=== PATIENT | female | born 2000 | race Caucasian/White ===

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

== ENCOUNTER → 2020-01-31 | Outpatient (CLI) | payer OTHER | END | disposition home or self-care (01) | LOC: LABWHC1 07:27 | PROVIDERS: ATTEND Family Medicine | DX: U07.1 COVID-19 (principal) ==

== ENCOUNTER → 2020-05-04 | Day surgery (SDC) | payer OTHER ==
[~2020-05-04] MED LIST: GLUCAGON 1 MG/ML VIAL IM STA
[2020-05-04 10:58] VITALS: BP 115/66; PULSE 80; RESP 16; TEMP 98.1
--- NOTE | 2020-05-05 11:32 | MR ---
EXAMINATION TYPE: MR Enterography DATE OF EXAM: 05/04/2020 COMPARISON: None. HISTORY: Unspecified abdominal pain, wt loss CONTRAST: Standard multiplanar, multisequence imaging of the abdomen is performed without and with IV contrast, patient is injected with 4 mL intravenous Gadavist gadolinium contrast. Oral Volumen was given as pe r enterography protocol. FINDINGS: Exam is noted suboptimal as patient unable to tolerate full amount of oral Volumen as per n ormal protocol and additionally patient has virtually no intra-abdominal fat. Bowel: Stomach satisfactorily distended without suspicious eccentric wall thickening or enhancement. Satisfactory fluid-filled distention of majority of duodenal sweep. Adequate distention of the jejuna l loops and fairly adequate distention of ileal loops. No suspicious eccentric wall thickening or mur al enhancement noted in small bowel loops. Cecum is somewhat low-lying in the right pelvis. Terminal ileum is felt within normal limits seen best on coronal images 55 and 56 series 801. There is fairly moderate prominence in the transverse colon. Colonic loop show no suspicious wall thickening or mural enhancement. Other: Lung bases are grossly clear. The liver, spleen, pancreas, and both adrenal glands are normal in size. Gallbladder is noted surgically absent. No concerning renal mass or hydronephrosis seen bila terally. Aorta and branch vessels are unremarkable. Bladder shows mild distention. Heterogeneous ante verted uterus projecting to right of midline is present. There are follicles in the left ovary. There is 1.7 cm thin-walled cyst or dominant follicle in the right ovary. No abdominal ascites. Visualized osseous structures are intact. IMPRESSION: No evidence of acute or chronic bowel inflammation. Terminal ileum felt within normal garcia its. Moderate mid colonic fecal stasis noted otherwise unremarkable study.
== END ==
LOC: RADMRIMAIN 10:09
PROVIDERS: ATTEND Surgery
DX: K59.8 Other specified functional intestinal disorders (principal); Z87.19 Personal history of other diseases of the digestive system; Z83.79 Family history of other diseases of the digestive system
CPT/HCPCS: 36415; 72197; 74183; J1610; A9585

== ENCOUNTER 2021-01-05 23:41 | Emergency (ER) | payer OTHER ==
[2021-01-05 23:48] VITALS: TEMP 98
[2021-01-05] MEDS ORDERED: SODIUM CHLORIDE 0.9% 1,000 ML IV STA (23:54)
[2021-01-06] MEDS ORDERED: ACETAMINOPHEN TAB 325 MG TAB PO STA (00:06)
--- NOTE | 2021-01-06 00:08 | ED ---
Abdominal Pain HPI - General Chief Complaint: Abdominal Pain Stated Complaint: Abd/Pelvic Pain Time Seen by Provider: 01/05/21 23:54 Source: patient Mode of arrival: ambulatory Limitations: no limitations - History of Present Illness Initial Comments: 20-year-old female presents to the emergency department the chief complaint of lower abdominal cramping. Patient reports the symptoms have been ongoing for the past 4 days intermittently. Patient reports he feels a cramp sensation 6/10 and is intermittent in nature. Patient states there is a possibility for . She is not trying to get . She denies any infectious or obstructive urinary symptoms. Denies any hematuria, hematochezia or melena. Patient is not concerned for STDs. - Related Data Home Medications Medication Instructions Recorded Confirmed Pnv,Calcium 72/Iron/Folic Acid 1 tab PO DAILY 07/09/18 05/04/20 [ Plus Tablet] Allergies Allergy/AdvReac Type Severity Reaction Status Date / Time No Known Allergies Allergy Verified 01/05/21 23:48 Review of Systems ROS Statement: Those systems with pertinent positive or pertinent negative responses have been documented in the HPI. ROS Other: All systems not noted in ROS Statement are negative. Past Medical History Past Medical History: No Reported History History of Any Multi-Drug Resistant Organisms: None Reported Past Surgical History: No Surgical Hx Reported Additional Past Surgical History / Comment(s): Abcess drained and widom teeth extraction Past Psychological History: No Psychological Hx Reported Smoking Status: Never smoker Past Alcohol Use History: Rare Past Drug Use History: None Reported General Exam Limitations: no limitations General appearance: alert, in no apparent distress Head exam: Present: atraumatic, normocephalic, normal inspection Eye exam: Present: normal appearance, PERRL, EOMI Pupils: Present: normal accommodation ENT exam: Present: normal exam, normal oropharynx, mucous membranes moist, TM's normal bilaterally, normal external ear exam Neck exam: Present: normal inspection, full ROM. Absent: tenderness Respiratory exam: Present: normal lung sounds bilaterally. Absent: respiratory distress, wheezes, rales, rhonchi, stridor, chest wall tenderness, accessory muscle use Cardiovascular Exam: Present: regular rate, normal rhythm, normal heart sounds. Absent: systolic murmur GI/Abdominal exam: Present: soft, tenderness (Right lower quadrant tenderness. positive McBurney point tenderness). Absent: distended, guarding, rebound, rigid Extremities exam: Present: normal inspection, full ROM, normal capillary refill. Absent: tenderness, pedal edema, joint swelling Back exam: Present: normal inspection, full ROM. Absent: tenderness, CVA tenderness (R), CVA tenderness (L) Neurological exam: Present: alert, oriented X3 Psychiatric exam: Present: normal affect, normal mood Skin exam: Present: warm, dry, intact, normal color Course Vital Signs 01/05/21 01/06/21 23:44 02:27 Temperature 98 F Pulse Rate 86 64 Respiratory 18 16 Rate Blood Pressure 111/69 110/68 O2 Sat by Pulse 100 100 Oximetry Medical Decision Making - Medical Decision Making 20-year-old female presents to the emergency department with a chief complaint of abdominal pain. On physical examination right lower quadrant abdominal tenderness. CBC CMP unremarkable. UA shows no signs urinary tract infection. This appears to be contaminated sample. Not . CT of the pelvis reveals moderate amount of stool in the cecum and right lower colon which measures up to 5 cm within normal limits. On reevaluation, patient reports improvement in symptoms. She'll be discharged with outpatient follow-up. Return parameters discussed with patient who's attending and agreeable. - Lab Data Result diagrams: 01/06/21 00:18 01/06/21 00:18 Lab Results 01/06/21 01/06/21 01/06/21 Range/Units 00:18 00:18 00:18 WBC 8.6 (3.8-10.6) k/uL RBC 4.85 (3.80-5.40) m/uL Hgb 13.8 (11.4-16.0) gm/dL Hct 43.2 (34.0-46.0) % MCV 89.1 (80.0-100.0) fL MCH 28.4 (25.0-35.0) pg MCHC 31.8 (31.0-37.0) g/dL RDW 13.2 (11.5-15.5) % Plt Count 318 (150-450) k/uL MPV 6.7 Neutrophils % 62 % Lymphocytes % 32 % Monocytes % 4 % Eosinophils % 1 % Basophils % 0 % Neutrophils # 5.3 (1.3-7.7) k/uL Lymphocytes # 2.7 (1.0-4.8) k/uL Monocytes # 0.3 (0-1.0) k/uL Eosinophils # 0.0 (0-0.7) k/uL Basophils # 0.0 (0-0.2) k/uL Sodium 137 (137-145) mmol/L Potassium 4.1 (3.5-5.1) mmol/L Chloride 105 (98-107) mmol/L Carbon Dioxide 27 (22-30) mmol/L Anion Gap 5 mmol/L BUN 13 (7-17) mg/dL Creatinine 0.55 (0.52-1.04) mg/dL Est GFR (CKD-EPI)AfAm >90 (>60 ml/min/1.73 sqM) Est GFR (CKD-EPI)NonAf >90 (>60 ml/min/1.73 sqM) Glucose 92 (74-99) mg/dL Calcium 9.6 (8.4-10.2) mg/dL Total Bilirubin 0.5 (0.2-1.3) mg/dL AST 19 (14-36) U/L ALT 10 (4-34) U/L Alkaline Phosphatase 62 (38-126) U/L Total Protein 7.4 (6.3-8.2) g/dL Albumin 4.7 (3.5-5.0) g/dL Amylase 71 (30-110) U/L Lipase 68 (23-300) U/L Urine Color Yellow Urine Appearance Cloudy H (Clear) Urine pH 5.5 (5.0-8.0) Ur Specific [place] 1.030 (1.001-1.035) Urine Protein 1+ H (Negative) Urine Glucose (UA) Negative (Negative) Urine Ketones Trace H (Negative) Urine Blood Negative (Negative) Urine Nitrite Negative (Negative) Urine Bilirubin Negative (Negative) Urine Urobilinogen <2.0 (<2.0) mg/dL Ur Leukocyte Esterase Negative (Negative) Urine RBC 1 (0-5) /hpf Urine WBC 6 H (0-5) /hpf Ur Squamous Epith Cells 51 H (0-4) /hpf Urine Bacteria Rare H (None) /hpf Hyaline Casts 2 (0-2) /lpf Urine Mucus Few H (None) /hpf Urine HCG, Qual (Not Detectd) 01/06/21 Range/Units 00:18 WBC (3.8-10.6) k/uL RBC (3.80-5.40) m/uL Hgb (11.4-16.0) gm/dL Hct (34.0-46.0) % MCV (80.0-100.0) fL MCH (25.0-35.0) pg MCHC (31.0-37.0) g/dL RDW (11.5-15.5) % Plt Count (150-450) k/uL MPV Neutrophils % % Lymphocytes % % Monocytes % % Eosinophils % % Basophils % % Neutrophils # (1.3-7.7) k/uL Lymphocytes # (1.0-4.8) k/uL Monocytes # (0-1.0) k/uL Eosinophils # (0-0.7) k/uL Basophils # (0-0.2) k/uL Sodium (137-145) mmol/L Potassium (3.5-5.1) mmol/L Chloride (98-107) mmol/L Carbon Dioxide (22-30) mmol/L Anion Gap mmol/L BUN (7-17) mg/dL Creatinine (0.52-1.04) mg/dL Est GFR (CKD-EPI)AfAm (>60 ml/min/1.73 sqM) Est GFR (CKD-EPI)NonAf (>60 ml/min/1.73 sqM) Glucose (74-99) mg/dL Calcium (8.4-10.2) mg/dL Total Bilirubin (0.2-1.3) mg/dL AST (14-36) U/L ALT (4-34) U/L Alkaline Phosphatase (38-126) U/L Total Protein (6.3-8.2) g/dL Albumin (3.5-5.0) g/dL Amylase (30-110) U/L Lipase (23-300) U/L Urine Color Urine Appearance (Clear) Urine pH (5.0-8.0) Ur Specific [place] (1.001-1.035) Urine Protein (Negative) Urine Glucose (UA) (Negative) Urine Ketones (Negative) Urine Blood (Negative) Urine Nitrite (Negative) Urine Bilirubin (Negative) Urine Urobilinogen (<2.0) mg/dL Ur Leukocyte Esterase (Negative) Urine RBC (0-5) /hpf Urine WBC (0-5) /hpf Ur Squamous Epith Cells (0-4) /hpf Urine Bacteria (None) /hpf Hyaline Casts (0-2) /lpf Urine Mucus (None) /hpf Urine HCG, Qual Not Detected (Not Detectd) Disposition Clinical Impression: Abdominal pain Disposition: HOME SELF-CARE Condition: Stable Instructions (If sedation given, give patient instructions): Abdominal Pain (ED) Additional Instructions: Please return to the Emergency Department if symptoms worsen or any other concerns. Is patient prescribed a controlled substance at d/c from ED?: No Referrals: Aaron Cyr MD [Primary Care Provider] - 1-2 days Time of Disposition: 02:19
[2021-01-06 00:33] LABS: Appearance,Urine Cloudy (Clear); Bacteria,Urine Rare /hpf; Bilirubin,Urine Negative (Negative); Blood,Urine Negative (Negative); Color,Urine Yellow; Glucose,Urine (UA) Negative (Negative); Hyaline Casts,Urine 2 /lpf (0-2); Ketones,Urine Trace (Negative); Leukocyte Esterase,Urine Negative (Negative); Mucus,Urine Few /hpf; Nitrite,Urine Negative (Negative); PH, Urine 5.5 (5.0-8.0); Protein,Urine 1+ (Negative); RBC,Urine 1 /hpf (0-5); Squamous Epithelial Cell,Urine 51 /hpf (0-4); Urobilinogen,Urine <2.0 mg/dL (<2.0); WBC,Urine 6 /hpf (0-5)
[2021-01-06 00:39] LABS: Basophils % (A) 0 %; Eosinophils % (A) 1 %; HCT 43.2 % (34.0-46.0); HGB 13.8 gm/dL (11.4-16.0); Lymphocytes # (A) 2.7 k/uL (1.0-4.8); Lymphocytes % (A) 32 %; MCH 28.4 pg (25.0-35.0); MCHC 31.8 g/dL (31.0-37.0); MCV 89.1 fL (80.0-100.0); Mean Platelet Volume 6.7; Monocytes # (A) 0.3 k/uL (0-1.0); Monocytes % (A) 4 %; Neutrophils # (A) 5.3 k/uL (1.3-7.7); Neutrophils % (A) 62 %; Platelet Count 318 k/uL (150-450); RBC 4.85 m/uL (3.80-5.40); RDW 13.2 % (11.5-15.5); WBC 8.6 k/uL (3.8-10.6)
[2021-01-06 00:41] LABS: ALT 10 U/L (4-34); AST 19 U/L (14-36); African American GFR (CKD) >90 (>60 ml/min/1.73 sqM); Albumin 4.7 g/dL (3.5-5.0); Alkaline Phosphatase 62 U/L (38-126); Amylase 71 U/L (30-110); Anion Gap 5 mmol/L; Blood Urea Nitrogen 13 mg/dL (7-17); Calcium 9.6 mg/dL (8.4-10.2); Carbon Dioxide 27 mmol/L (22-30); Chloride 105 mmol/L (98-107); Glucose 92 mg/dL (74-99); Lipase 68 U/L (23-300); Non-African American GFR(CKD) >90 (>60 ml/min/1.73 sqM); Potassium 4.1 mmol/L (3.5-5.1); Sodium 137 mmol/L (137-145); Total Bilirubin 0.5 mg/dL (0.2-1.3); Total Protein 7.4 g/dL (6.3-8.2)
--- NOTE | 2021-01-06 02:08 | CT ---
EXAM: CT Abdomen and Pelvis With Intravenous Contrast CLINICAL HISTORY: ITS.REASON CT Reason: + McBurney's tenderness TECHNIQUE: Axial computed tomography images of the abdomen and pelvis with intravenous contrast. CTDI is 10.27 mGy and DLP is 459.9 mGy-cm. This CT exam was performed using one or more of the following dose reduction techniques: automated exposure control, adjustment of the mA and/or kV according to patient size, and/or use of iterative reconstruction technique. COMPARISON: No relevant prior studies available. FINDINGS: Lung bases: Unremarkable. No mass. No consolidation. ABDOMEN: Liver: Unremarkable. No mass. Gallbladder and bile ducts: Previous cholecystectomy. No biliary duct dilation is seen. Pancreas: Unremarkable. No mass. No ductal dilation. Spleen: Unremarkable. No splenomegaly. Adrenals: Unremarkable. No mass. Kidneys and ureters: Delayed images show normal renal contrast excretion bilaterally. No hydronephrosis. Stomach and bowel: Unremarkable. No obstruction. No mucosal thickening. PELVIS: Appendix: The appendix is normal. There is a moderate amount of stool in the cecum and lower right colon which measures up to 5 cm which is within normal limits. No acute inflammatory changes are seen involving the bowel. Bladder: Unremarkable. No mass. Reproductive: Unremarkable as visualized. ABDOMEN and PELVIS: Intraperitoneal space: Unremarkable. No free air. No significant fluid collection. Bones/joints: No acute fracture. No dislocation. Soft tissues: Unremarkable. Vasculature: Unremarkable. No abdominal aortic aneurysm. Lymph nodes: Unremarkable. No enlarged lymph nodes. IMPRESSION: The appendix is normal. There is a moderate amount of stool in the cecum and lower right colon which measures up to 5 cm which is within normal limits. No acute inflammatory changes are seen involving the bowel.
[2021-01-06 02:29] VITALS: BP 110/68; PULSE 64; RESP 16
== END 2021-01-06 02:29 | disposition home or self-care (01) ==
LOC: EC 23:41
DX: R10.31 Right lower quadrant pain (principal)
CPT/HCPCS: 36415; 80053; 82150; 83690; 85025; 81001; 81025; 74177; 99284; 96360; Q9967

== ENCOUNTER 2021-03-05 17:46 | Emergency (ER) | payer OTHER ==
[2021-03-05 17:50] VITALS: RESP 18; TEMP 98.7
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
[2021-03-05 20:46] VITALS: BP 93/51; PULSE 86
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
== END 2021-03-05 21:10 | disposition home or self-care (01) ==
LOC: EC 17:46
DX: M54.2 Cervicalgia (principal); M54.6 Pain in thoracic spine; R51.9 Headache, unspecified; F17.200 Nicotine dependence, unspecified, uncomplicated; V49.40XA Driver injured in collision with unspecified motor vehicles in traffic accident, initial encounter
CPT/HCPCS: 70450; 71046; 72125; 72128; 99284

== ENCOUNTER 2021-09-10 20:37 | Emergency (ER) | payer OTHER ==
[2021-09-10 22:04] VITALS: BP 112/62; TEMP 98.5
[2021-09-10] MEDS ORDERED: ONDANSETRON 4 MG/2 ML VIAL IVP STA (22:29)
[2021-09-10] MEDS ORDERED: MORPHINE SULFATE 4 MG/ML SYRINGE IV STA (22:29)
[2021-09-10] MEDS ORDERED: SODIUM CHLORIDE 0.9% 1,000 ML IV STA (22:29)
[2021-09-10] MEDS ORDERED: diphenhydrAMINE 50 MG/ML 1 ML VIAL IVP STA (22:29)
[2021-09-10] MEDS ORDERED: ACETAMINOPHEN TAB 325 MG TAB PO STA (22:38)
[2021-09-11] MEDS ORDERED: MECLIZINE 12.5 MG TAB PO STA (00:25)
--- NOTE | 2021-09-11 01:23 | ED ---
Headache HPI - General Chief Complaint: Headache Stated Complaint: headache, dizziness, 10 wks preg Time Seen by Provider: 09/10/21 22:28 Source: patient, RN notes reviewed Mode of arrival: ambulatory - History of Present Illness Initial Comments: patient is a 21-year-old female that presents to the emergency department complaining of headache and little bit dizziness. She notes she was found out she was she is approximately 9 weeks. She denied any couple case with the such as lower abdominal cramping or pain or bleeding. Patient was otherwise well-appearing in no apparent distress. She denied any chest pain shortness of breath nausea vomiting diarrhea constipation fever fatigue chills. - Related Data Home Medications Medication Instructions Recorded Confirmed Pnv,Calcium 72/Iron/Folic Acid 1 tab PO DAILY 07/09/18 09/10/21 [ Plus Tablet] Previous Rx's Medication Instructions Recorded Meclizine [Antivert] 25 mg PO TID 10 Days #30 tab 09/11/21 Allergies Allergy/AdvReac Type Severity Reaction Status Date / Time No Known Allergies Allergy Verified 09/10/21 22:42 Review of Systems ROS Statement: Those systems with pertinent positive or pertinent negative responses have been documented in the HPI. ROS Other: All systems not noted in ROS Statement are negative. Past Medical History Past Medical History: No Reported History History of Any Multi-Drug Resistant Organisms: None Reported Past Surgical History: No Surgical Hx Reported Additional Past Surgical History / Comment(s): Abcess drained and widom teeth extraction Past Psychological History: No Psychological Hx Reported Smoking Status: Vaper Past Alcohol Use History: None Reported Past Drug Use History: None Reported, Marijuana General Exam General appearance: alert, in no apparent distress Head exam: Present: atraumatic, normocephalic, normal inspection Eye exam: Present: normal appearance, PERRL, EOMI. Absent: scleral icterus, conjunctival injection, periorbital swelling ENT exam: Present: normal exam, mucous membranes moist Neck exam: Present: normal inspection Respiratory exam: Present: normal lung sounds bilaterally. Absent: respiratory distress, wheezes, rales, rhonchi, stridor Cardiovascular Exam: Present: regular rate, normal rhythm, normal heart sounds. Absent: systolic murmur, diastolic murmur, rubs, gallop, clicks Extremities exam: Present: normal inspection, full ROM, normal capillary refill. Absent: tenderness, pedal edema, joint swelling, calf tenderness Neurological exam: Present: alert, oriented X3 Psychiatric exam: Present: normal affect, normal mood Skin exam: Present: warm, dry, intact, normal color. Absent: rash Course Vital Signs 09/10/21 22:00 Temperature 98.5 F Pulse Rate 99 Respiratory 18 Rate Blood Pressure 112/62 O2 Sat by Pulse 100 Oximetry Medical Decision Making - Medical Decision Making 21-year-old female complaining of headache with mild dizziness. 1 L normal saline, 50 mg of Benadryl, 650 mg of Tylenol, 4 mg of Zofran ordered. Upon reevaluation patient notes her headache has improved but is still slightly dizzy. 25 mg of meclizine ordered. Patient notes that this helped reduce dizziness and is ready to go home. case discussed with Dr. Green. Disposition Clinical Impression: Headache, Dizziness Disposition: HOME SELF-CARE Condition: Stable Instructions (If sedation given, give patient instructions): Acute Headache (ED) Additional Instructions: Please return to the Emergency Department if symptoms worsen or any other concerns. Follow up with primary care in 1-2 days. Follow-up with [facility] as planned. Take Antivert as prescribed. Is patient prescribed a controlled substance at d/c from ED?: No Referrals: Aaron Cyr MD [Primary Care Provider] - 1-2 days Time of Disposition:
[2021-09-11 01:25] VITALS: PULSE 74; RESP 16
== END 2021-09-11 01:29 | disposition home or self-care (01) ==
LOC: EC 20:37
DX: O26.891 Other specified pregnancy related conditions, first trimester (principal); R51.9 Headache, unspecified; R42 Dizziness and giddiness; F17.290 Nicotine dependence, other tobacco product, uncomplicated; Z3A.09 9 weeks gestation of pregnancy
CPT/HCPCS: 99283; 96374; 96375; 96361; J1200; J2405

== ENCOUNTER 2022-01-28 21:05 | Outpatient (CLI) | payer OTHER ==
[2022-01-28 23:36] VITALS: BP 122/56; PULSE 77; RESP 16; TEMP 97.5
--- NOTE | 2022-01-29 06:45 | P.MSEPDOC ---
Presenting Problems - Arrival Data Date of Arrival on Unit: 01/28/22 Time of Arrival on Unit: 21:05 Mode of Transport: Ambulatory - Complaint OB-Reason for Admission/Chief Complaint: Possible Onset of Labor Comment: cx "every couple mins" for 2 hrs Medical History - Information : 2 Para: 1 Term: 1 : 0 Abortions: Spontaneous or Elective: 0 Number of Living Children: 1 - Gestational Age Gestational Age by JOESPH (wks/days): 25 Weeks and 3 Days - History Comment: prior labor, delivered at 37 weeks Review of Systems - Review of Systems Constitutional: No problems Breast: No problems ENT: No problems Cardiovascular: No problems Respiratory: No problems Gastrointestinal: No problems Genitourinary: No problems Musculoskeletal: No problems Neurological: No problems Skin: No problems Vital Signs - Temperature Temperature: 97.5 F Temperature Source: Temporal Artery Scan - Pulse Pulse Oximetery Pulse Rate: 77 Pulse Assessment Method: Pulse Oximetry - Respirations Respiratory Rate: 16 Oxygen Delivery Method: Room Air O2 Sat by Pulse Oximetry: 98 - Blood Pressure Right Arm Blood Pressure: 122/56 Blood Pressure Mean: 78 Blood Pressure Source: Automatic Cuff Medical Screen Scoring - Cervical Exam Dilation (cm): 0 Effacement (%): 60 Station: -3 Membranes: Intact - Uterine Contractions Frequency From (mins): 2 Frequency To (mins): 5 Resting: Soft to palpation - Assessment - Baby A Baseline FHR: 130 Heart Rate - NICHD Category: Category I (Normal) Physician Notification - Physician Notified Physician Notified Date: 01/28/22 Physician Notified Time: 21:54 Physician: Kaur Benavides New Order Received: Yes - Notification Comment Comment: Dr. Benavides called, report given on maternal and status. Pt complains of contractions x2hrs "every couple mins". Pt is timing contractions every 2-5 mins but none are graphing per TOCO or palpated. Pt has a hx of labor with her first baby but did not delivery until 37 weeks. No SVE performed yet. Orders to collect FFN and perform SVE. If pt is closed, do not send FFN and pt can be discharged home. Maternal Triage Index - Maternal Triage Index Presenting for scheduled procedure w/no complaint: No - Stat/Priority 1 Stat Priority 1: No - Urgent/Priority 2 Urgent Priority 2: Yes Provider Notified: Kaur Benavides Provider Notified Time: 21:54 Criteria Met for Priority 2: 25 2/7 weeks with complaints of contractions "every couple mins" for 2 hours. Hx of labor Disposition - Disposition OB Disposition: Discharge to home Discharge Date: 01/28/22 Discharge Time: 22:13 I agree with the RN Medical Screening Exam: Yes Case reviewed; plan agreed upon as documented in EMR&OBIX.: Yes Diagnosis: PELVIC AND PERINEAL PAIN
== END 2022-01-28 22:13 | disposition home or self-care (01) ==
LOC: FBPOP 21:05
PROVIDERS: ATTEND Obstetrics & Gynecology
DX: O26.892 Other specified pregnancy related conditions, second trimester (principal); Z3A.25 25 weeks gestation of pregnancy
CPT/HCPCS: 99213

== ENCOUNTER 2022-03-16 20:45 | Outpatient (CLI) | payer OTHER ==
[2022-03-17 01:23] VITALS: BP 109/61; PULSE 93; RESP 16; TEMP 97.4
--- NOTE | 2022-03-19 21:31 | P.MSEPDOC ---
Presenting Problems - Arrival Data Date of Arrival on Unit: 03/17/22 Time of Arrival on Unit: 20:55 Mode of Transport: Ambulatory - Complaint OB-Reason for Admission/Chief Complaint: Rule Out SROM Comment: Patient arrives to triage and states she started leaking clear fluid a half. hour earlier while at work. Patient states she is not in any pain or having any. contractions. She says she spoke to Dr. Plascencia on the telephone and Dr. Plascencia told her to. come in to be evaluated. Medical History - Information : 2 Para: 1 Term: 1 : 0 Abortions: Spontaneous or Elective: 0 Number of Living Children: 1 - Gestational Age Gestational Age by JOESPH (wks/days): 32 Weeks and 2 Days Review of Systems - Review of Systems Constitutional: No problems Breast: No problems ENT: No problems Cardiovascular: No problems Respiratory: No problems Gastrointestinal: No problems Genitourinary: No problems Musculoskeletal: No problems Neurological: No problems Skin: No problems Vital Signs - Temperature Temperature: 97.4 F Temperature Source: Temporal Artery Scan - Pulse Right Brachial Pulse Rate: 93 Pulse Assessment Method: Automatic Cuff - Respirations Respiratory Rate: 16 Oxygen Delivery Method: Room Air - Blood Pressure Right Arm Blood Pressure: 109/61 Blood Pressure Mean: 77 Blood Pressure Source: Automatic Cuff Medical Screen Scoring - Cervical Exam Membranes: Intact - Assessment - Baby A Baseline FHR: 135 Heart Rate - NICHD Category: Category I (Normal) NST: Reactive Physician Notification - Physician Notified Physician Notified Date: 03/16/22 Physician Notified Time: 21:45 Physician: Darby Plascnecia New Order Received: Yes - Notification Comment Comment: RN spoke with Dr. Plascencia via telephone. RN reported negative amnisure, no. contractions per TOCO or per patient. No fluid noted during amnisure collection. Dr. Plascencia states patient may be discharged and to keep her follow up appointment on . Patient in agreement and verbalizes understanding. Maternal Triage Index - Maternal Triage Index Presenting for scheduled procedure w/no complaint: No - Stat/Priority 1 Stat Priority 1: No - Urgent/Priority 2 Urgent Priority 2: Yes Provider Notified: Darby Plascencia Provider Notified Time: 21:45 Criteria Met for Priority 2: <34 weeks with c/o SROM Disposition - Disposition OB Disposition: Discharge to home Discharge Date: 03/17/22 Discharge Time: 21:50 I agree with the RN Medical Screening Exam: Yes Case reviewed; plan agreed upon as documented in EMR&OBIX.: Yes Diagnosis: FALSE LABOR BEFORE 37 COMPLETED WEEKS OF GEST, THIRD TRI
== END 2022-03-16 21:50 | disposition home or self-care (01) ==
LOC: FBPOP 20:45
PROVIDERS: ATTEND Obstetrics & Gynecology
DX: O47.03 False labor before 37 completed weeks of gestation, third trimester (principal); Z3A.32 32 weeks gestation of pregnancy
CPT/HCPCS: 84112; 99213

== ENCOUNTER 2022-03-31 08:06 | Outpatient (CLI) | payer OTHER ==
[2022-03-31] MEDS: LACTATED RINGERS 1,000 ML IV ONE ×2 (08:56→09:15)
[2022-03-31 08:58] LABS: Appearance,Urine Clear (Clear); Bilirubin,Urine Negative (Negative); Blood,Urine Negative (Negative); Color,Urine Light Yellow; Glucose,Urine (UA) Negative (Negative); Ketones,Urine Negative (Negative); Leukocyte Esterase,Urine Negative (Negative); Nitrite,Urine Negative (Negative); Protein,Urine Negative (Negative); Specific Gravity,Urine 1.006 (1.001-1.035); Urobilinogen,Urine <2.0 mg/dL (<2.0)
[2022-03-31] MEDS ORDERED: BETAMET ACET-BETAMETH SOD PHOS 6 MG/ML MDV IM SCH (09:00)
[2022-03-31 09:01] LABS: Basophils % (A) 0 %; Eosinophils # (A) 0.1 k/uL (0-0.7); Eosinophils % (A) 1 %; HCT 37.6 % (34.0-46.0); HGB 12.7 gm/dL (11.4-16.0); Lymphocytes # (A) 1.8 k/uL (1.0-4.8); Lymphocytes % (A) 15 %; MCH 30.3 pg (25.0-35.0); MCHC 33.9 g/dL (31.0-37.0); MCV 89.3 fL (80.0-100.0); Mean Platelet Volume 6.9; Monocytes # (A) 0.5 k/uL (0-1.0); Monocytes % (A) 4 %; Neutrophils # (A) 9.8 k/uL (1.3-7.7); Neutrophils % (A) 79 %; Platelet Count 327 k/uL (150-450); RBC 4.21 m/uL (3.80-5.40); WBC 12.4 k/uL (3.8-10.6)
[2022-03-31] MEDS ORDERED: MAGNESIUM SULFATE GM 6 GM in SODIUM CHLORIDE 0.9% 100 ML IVPB ONE (09:39)
[2022-03-31] MEDS ORDERED: MAGNESIUM SULFATE-WATER PMX 20 GM in WATER FOR INJECTION 1 500ML.BAG IV SCH (09:45)
--- NOTE | 2022-03-31 10:12 | P.HPOB ---
History of Present Illness H&P Date: 03/31/22 Chief Complaint: Contractions This is a 21-year-old female 2 para 1 with an estimated date of confinement of 05/12/2022, estimated gestational age of 33-6/7 weeks, who presents to labor and delivery with complaints of contractions that began last night at about 3 AM and were persistent. Upon arrival to triage she was found to be 3 cm 80% and 0 station. Within an hour she did make change to 4 cm 80% and 0 station. She states her she is still feeling contractions that and they have not spaced out. She does have a history of a delivery at 35-1/2 weeks with her last and her son was diagnosed with gastroschisis. She states that she did have labor and was placed on Procardia at 24 weeks and given steroids. labs: GC/Chlamydia/Trichomonas-negative Hepatitis B surface antigen-negative RPR-nonreactive Rubella-immune Blood type-A- Antibody screen-negative HIV-nonreactive Hemoglobin-13.7 Toxoplasma screen-negative Random glucose-73 Quad screen-negative One hour Glucola-90 RhoGAM was given at 28 weeks Obstetrical history: . History of 1 delivery at 35-3/7 weeks with a weight of 4 lbs. 11 oz. at [facility]. was, it a by labor starting at 24 weeks. 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 Review of Systems Constitutional: Denies chills, Denies fever Eyes: denies blurred vision, denies pain Ears, nose, mouth and throat: Denies headache, Denies sore throat Cardiovascular: Denies chest pain, Denies shortness of breath Respiratory: Denies cough Gastrointestinal: Reports abdominal pain (Contractions) Genitourinary: Reports pelvic pain, Reports Musculoskeletal: Reports low back pain Past Medical History Past Medical History: No Reported History History of Any Multi-Drug Resistant Organisms: None Reported Past Surgical History: Cholecystectomy Additional Past Surgical History / Comment(s): Abcess drained and widom teeth extraction Past Psychological History: No Psychological Hx Reported Smoking Status: Never smoker Past Alcohol Use History: None Reported Past Drug Use History: Marijuana (Prior to ) - Past Family History Son(s) Additional Family Medical History / Comment(s): Gastroschisis Medications and Allergies Home Medications Medication Instructions Recorded Confirmed Type Vit No.180/Iron/Folic 1 tab PO DAILY 07/09/18 03/31/22 History [ Plus Tablet] Allergies Allergy/AdvReac Type Severity Reaction Status Date / Time No Known Allergies Allergy Verified 03/31/22 08:21 Exam Osteopathic Statement: *. No significant issues noted on an osteopathic structural exam other than those noted in the History and Physical/Consult. Intake and Output 03/30/22 03/31/22 03/31/22 22:59 06:59 14:59 Other: Weight 53.524 kg HEENT: Within normal limits Heart: Regular rate and rhythm Lungs: Clear to auscultation bilaterally Abdomen: Cervix: 4 cm/80%/0 station heart tones: Category 1 Contractions: Every 2-3 minutes Extremities: Negative Homans Results Result Diagrams: 03/31/22 08:52 Abnormal Lab Results - Last 24 Hours (Table) 03/31/22 Range/Units 08:52 WBC 12.4 H (3.8-10.6) k/uL Neutrophils # 9.8 H (1.3-7.7) k/uL Assessment and Plan (1) 33 weeks gestation of Current Visit: Yes Status: Acute Code(s): Z3A.33 - 33 WEEKS GESTATION OF SNOMED Code(s): 22594562 (2) labor in third trimester Current Visit: Yes Status: Acute Code(s): O60.03 - LABOR WITHOUT DELIVERY, THIRD TRIMESTER SNOMED Code(s): 1329168 Plan: Start magnesium sulfate tocolysis. Celestone 12 mg given 1 time. Will start antibiotics for group B streptococcus prophylaxis. Once contractions have spaced out, will transfer to [facility] in [place] per Dr. Olson. Patient agreeable to transfer.
[2022-03-31 10:13] VITALS: BP 107/60; PULSE 68; RESP 16
[2022-03-31] MEDS ORDERED: AMPICILLIN 2,000 MG in SODIUM CHLORIDE 0.9% 100 ML IVPB STA (10:14)
--- NOTE | 2022-03-31 12:34 | US ---
EXAMINATION TYPE: US OB >= 14 wk fetus DATE OF EXAM: 03/31/2022 COMPARISON: US 10/19/2021 CLINICAL HISTORY: 21-year-old female labor per order. . FINDINGS: TECHNIQUE: Transabdominal (TA) GESTATIONAL AGE / DATING Physician Established: (34 weeks/0 days) EDC: 05/12/2022 Dates by LMP: Unknown Dates by First Scan: (34 weeks/2 days) EDC: 05/10/2022 Dates by Current Scan: (33 weeks/4 days), 5 days less growth than expected compared to 10/19/2021. EDC: 05/15/2022 SURVEY IUP: Single PLACENTA: Posterior - Fundal . Slightly limited visibility. Appears heterogeneous. PREVIA: No Previa seen. JACKY: 9.09 cm Low for hospital standards. (10-18 cm for hospital standards). CERVICAL LENGTH (transabdominal: norm > 3.0cm): Not seen. Transvaginal ultrasound to visualize cervix is not needed per RN. BIOMETRY PRESENTATION: Vertex BPD: 8.20 cm 33 weeks / 0 days HC: 30.74 cm 34 weeks / 2 days AC: 30.69 cm 34 weeks / 4 days FL: 6.56 cm 33 weeks / 6 days ESTIMATED WEIGHT IN GRAMS: 2374 grams ESTIMATED WEIGHT IN LBS/OZ: 5 lbs. 4 oz. WEIGHT PERCENTAGE BASED ON ESTABLISHED DATES: 49.6% HC/AC: 1.0 Normal FL/AC: 21.38 HEART RATE: 145 bpm RHYTHM: Normal IMPRESSION: 1. Single live intrauterine with established gestational age of 34 weeks 0 days. Current ul trasound biometry is concordant at 33 weeks 4 days (though with 5 days less growth than expected comp ared to 10/19/2021). 2. Low normal JCAKY at 9.1 cm. 3. No placenta previa. Cephalic presentation. Note that the anatomy was not assessed.
[2022-03-31 14:20] VITALS: TEMP 98.4
--- NOTE | 2022-04-01 08:50 | P.MSEPDOC ---
Presenting Problems - Arrival Data Date of Arrival on Unit: 03/31/22 Time of Arrival on Unit: 08:06 Mode of Transport: Portable - Complaint OB-Reason for Admission/Chief Complaint: Possible Onset of Labor Comment: every 2-3 min since 0300 Medical History - Information : 2 Para: 1 Term: 0 : 1 Abortions: Spontaneous or Elective: 0 Number of Living Children: 1 - Gestational Age Gestational Age by JOESPH (wks/days): 34 Weeks and 0 Days - History Complications: Prior Review of Systems - Review of Systems Constitutional: No problems Breast: No problems ENT: No problems Cardiovascular: No problems Respiratory: No problems Gastrointestinal: No problems Genitourinary: No problems Musculoskeletal: No problems Neurological: No problems Skin: No problems Vital Signs - Temperature Temperature: 98.4 F Temperature Source: Temporal Artery Scan - Pulse Right Brachial Pulse Rate: 68 Pulse Assessment Method: Automatic Cuff - Respirations Respiratory Rate: 16 Oxygen Delivery Method: Room Air O2 Sat by Pulse Oximetry: 97 - Blood Pressure Right Arm Sitting Blood Pressure: 107/60 Blood Pressure Mean: 75 Blood Pressure Source: Automatic Cuff Medical Screen Scoring - Cervical Exam Dilation (cm): 4.5 Effacement (%): 80 Station: 0 Membranes: Intact - Uterine Contractions Frequency From (mins): 2 Frequency To (mins): 3 Duration From (seconds): 50 Duration To (seconds): 60 Intensity: Moderate Resting: Soft to palpation - Assessment - Baby A Baseline FHR: 125 Heart Rate - NICHD Category: Category I (Normal) NST: Reactive Physician Notification - Physician Notified Physician Notified Date: 03/31/22 Physician Notified Time: 08:51 Physician: Darby Plascencia New Order Received: Yes - Notification Comment Comment: iv hydrate, cbc,ua, mag, ampicillin, celestone, ultrasound, transfer to [facility] Maternal Triage Index - Maternal Triage Index Presenting for scheduled procedure w/no complaint: No - Stat/Priority 1 Stat Priority 1: No - Urgent/Priority 2 Urgent Priority 2: Yes Provider Notified: Darby Plascencia Provider Notified Time: 08:51 Criteria Met for Priority 2: <34 weeks denita, cervical change Disposition - Disposition OB Disposition: Triage, Transfer to other dept./facility Transferred to:: [facility] Discharge Date: 03/31/22 Discharge Time: 13:32 I agree with the RN Medical Screening Exam: Yes Case reviewed; plan agreed upon as documented in EMR&OBIX.: Yes Diagnosis: LABOR WITHOUT DELIVERY, THIRD TRIMESTER
== END 2022-03-31 13:32 | disposition other institution (70) ==
LOC: FBPOP 08:06
PROVIDERS: ATTEND Obstetrics & Gynecology
DX: O60.03 Preterm labor without delivery, third trimester (principal); Z3A.34 34 weeks gestation of pregnancy
CPT/HCPCS: 59025; 96361; 96365; 96366; 96367; 96372; 36415; 85025; 81003; 76805; G0463; J3475 ×2; J0290; J0702; 99215

== ENCOUNTER 2022-04-02 23:08 | Outpatient (CLI) | payer OTHER ==
[2022-04-03 00:57] VITALS: BP 112/54; PULSE 88; RESP 16; TEMP 97.4
--- NOTE | 2022-04-03 10:46 | P.MSEPDOC ---
Presenting Problems - Arrival Data Date of Arrival on Unit: 04/03/22 Time of Arrival on Unit: 23:08 Mode of Transport: Wheelchair - Complaint OB-Reason for Admission/Chief Complaint: Possible Onset of Labor Comment: Patient presents to triage with contractions stating they are 5-10 minutes apart and rated 7/10 on pain scale. Patient was seen on 03/31 and was. transferred to [facility] for labor, patient recieved celestone and mag at. that time. Medical History - Information : 2 Para: 1 Term: 0 : 1 Abortions: Spontaneous or Elective: 0 Number of Living Children: 1 - Gestational Age Gestational Age by JOESPH (wks/days): 34 Weeks and 3 Days - History Complications: Prior Review of Systems - Review of Systems Constitutional: No problems Breast: No problems ENT: No problems Cardiovascular: No problems Respiratory: No problems Gastrointestinal: No problems Genitourinary: No problems Musculoskeletal: No problems Neurological: No problems Skin: No problems Vital Signs - Temperature Temperature: 97.4 F Temperature Source: Temporal Artery Scan - Pulse Right Brachial Pulse Rate: 88 Pulse Assessment Method: Automatic Cuff - Respirations Respiratory Rate: 16 Oxygen Delivery Method: Room Air - Blood Pressure Right Arm Blood Pressure: 112/54 Blood Pressure Mean: 73 Blood Pressure Source: Automatic Cuff Medical Screen Scoring - Cervical Exam Dilation (cm): 3.5 Effacement (%): 60 Station: -2 Membranes: Intact - Assessment - Baby A Baseline FHR: 140 Heart Rate - NICHD Category: Category I (Normal) NST: Reactive Physician Notification - Physician Notified Physician Notified Date: 04/02/22 Physician Notified Time: 23:45 Physician: Darby Plascencia Order Received: Yes - Notification Comment Comment: Dr. Plascencia called with report on her patient from the office who presents with. c/o contractions. Patient previously transferred to [facility] on 03/31 and discharged 04/01. cervical exam 3.5/60/-2. contractions not tracing on toco. Patient states that she is. feeling them irregularly. Dr. Plascencia orders to watch patient for 30 minutes and recheck. patient after 1 hour. hold FFN. If no change patient can be discharge home. Maternal Triage Index - Maternal Triage Index Presenting for scheduled procedure w/no complaint: No - Stat/Priority 1 Stat Priority 1: No - Urgent/Priority 2 Urgent Priority 2: No - Prompt/Priority 3 Prompt Priority 3: Yes Criteria Met for Priority 3: contractions 34 10/11 Disposition - Disposition OB Disposition: Discharge to home Discharge Date: 04/03/22 Discharge Time: 00:29 I agree with the RN Medical Screening Exam: Yes Case reviewed; plan agreed upon as documented in EMR&OBIX.: Yes Diagnosis: FALSE LABOR BEFORE 37 COMPLETED WEEKS OF GEST, THIRD TRI
== END 2022-04-03 00:29 | disposition home or self-care (01) ==
LOC: FBPOP 23:08
PROVIDERS: ATTEND Obstetrics & Gynecology
DX: O47.03 False labor before 37 completed weeks of gestation, third trimester (principal); Z3A.34 34 weeks gestation of pregnancy
CPT/HCPCS: 59025; G0463; 99213

== ENCOUNTER 2022-04-14 14:35 | Outpatient (CLI) | payer OTHER ==
[2022-04-14 15:26] VITALS: BP 114/72; PULSE 97; RESP 17; TEMP 97.1
--- NOTE | 2022-04-15 06:10 | P.MSEPDOC ---
Presenting Problems - Arrival Data Date of Arrival on Unit: 04/14/22 Time of Arrival on Unit: 14:35 Mode of Transport: Ambulatory - Complaint OB-Reason for Admission/Chief Complaint: Rule Out SROM Comment: pt was at appt with dr shen and stated she thought she had been leaking since noon yesterday, orders given via phone from dr shen to perform amnisure and cervical exam Medical History - Information : 2 Para: 1 Term: 0 : 1 Abortions: Spontaneous or Elective: 0 Number of Living Children: 1 - Gestational Age Gestational Age by JOESPH (wks/days): 36 Weeks and 0 Days - History Comment: ptl at 32 weeks gestation Review of Systems - Review of Systems Constitutional: No problems Breast: No problems ENT: No problems Cardiovascular: No problems Respiratory: No problems Gastrointestinal: No problems Genitourinary: No problems Musculoskeletal: No problems Neurological: No problems Skin: No problems Vital Signs - Temperature Temperature: 97.1 F Temperature Source: Temporal Artery Scan - Pulse Right Brachial Pulse Rate: 97 Pulse Assessment Method: Automatic Cuff - Respirations Respiratory Rate: 17 Oxygen Delivery Method: Room Air O2 Sat by Pulse Oximetry: 98 - Blood Pressure Right Arm Blood Pressure: 114/72 Blood Pressure Mean: 86 Blood Pressure Source: Automatic Cuff Medical Screen Scoring - Cervical Exam Dilation (cm): 4 Effacement (%): 70 Station: -2 Membranes: Intact - Uterine Contractions Intensity: Mild Resting: Soft to palpation - Assessment - Baby A Baseline FHR: 130 Heart Rate - NICHD Category: Category I (Normal) NST: Reactive Physician Notification - Physician Notified Physician Notified Date: 04/14/22 Physician Notified Time: 15:09 Physician: Robert Shen New Order Received: Yes (dc home) Maternal Triage Index - Prompt/Priority 3 Prompt Priority 3: Yes Criteria Met for Priority 3: amnisure results negative Disposition - Disposition OB Disposition: Discharge to home, Written follow up instructions reviewed Discharge Date: 04/14/22 Discharge Time: 15:15 I agree with the RN Medical Screening Exam: Yes Case reviewed; plan agreed upon as documented in EMR&OBIX.: Yes Diagnosis: FALSE LABOR BEFORE 37 COMPLETED WEEKS OF GEST, THIRD TRI
== END 2022-04-14 15:15 | disposition home or self-care (01) ==
LOC: FBPOP 14:35
PROVIDERS: ATTEND Obstetrics & Gynecology
DX: O47.03 False labor before 37 completed weeks of gestation, third trimester (principal); Z3A.36 36 weeks gestation of pregnancy
CPT/HCPCS: 59025; 84112

== ENCOUNTER 2023-04-26 16:56 | Emergency (ER) | payer OTHER ==
[2023-04-26 17:11] VITALS: BP 96/59; PULSE 74; RESP 18; TEMP 97.7
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
[2023-04-26] MEDS ORDERED: ACETAMINOPHEN TAB 325 MG TAB PO STA (19:45)
[2023-04-26] MEDS ORDERED: LIDOCAINE 5% PATCH TOPICAL STA (19:46)
== END 2023-04-26 20:54 | disposition home or self-care (01) ==
LOC: EC 16:56
DX: S16.1XXA Strain of muscle, fascia and tendon at neck level, initial encounter (principal); F12.90 Cannabis use, unspecified, uncomplicated; Z90.49 Acquired absence of other specified parts of digestive tract; V43.62XA Car passenger injured in collision with other type car in traffic accident, initial encounter; Y92.410 Unspecified street and highway as the place of occurrence of the external cause
CPT/HCPCS: 70450; 72125; 99284